=== PATIENT | female | born 1980 | race Asian ===

== ENCOUNTER 2019-07-01 18:41 | Emergency (ER) | payer OTHER ==
[2019-07-01] MEDS ORDERED: EPINEPHRINE INJ/PF 1 MG/1 ML AMPULE IM ONE (19:09)
[2019-07-01] MEDS ORDERED: METHYLPREDNISOLONE INJ 125 MG/2 ML SDV IV ONE (19:09)
[2019-07-01] MEDS ORDERED: FAMOTIDINE INJ/PF 20 MG/2 ML SDV IV ONE (19:09)
--- NOTE | 2019-07-01 19:12 | ER Document Report ---
ED Medical Screen (RME) - General Chief Complaint: Allergic Reaction Stated Complaint: POSSIBLE ALLERGIC REACTION Time Seen by Provider: 07/01/19 19:02 Mode of Arrival: Ambulatory Information source: Patient Notes: Patient presents with lip swelling and right periorbital swelling that started around 5 PM. Patient went to an urgent care was given 50 mg of Benadryl orally just prior to arrival here. Patient denies any difficulty breathing or swallowing. I have greeted and performed a rapid initial assessment of this patient. A comprehensive ED assessment and evaluation of the patient, analysis of test results and completion of the medical decision making process will be conducted by additional ED providers. Physical Exam - Vital signs Vitals: Temp Pulse Resp BP Pulse Ox 99.0 F 78 24 H 143/80 H 98 07/01/19 18:48 07/01/19 18:48 07/01/19 18:48 07/01/19 18:48 07/01/19 18:48 - General General appearance: Alert Notes: Right periorbital swelling, swelling to the right upper lip and left lower lip area. No posterior pharynx swelling or uvula edema. Course - Vital Signs Vital signs: Temp Pulse Resp BP Pulse Ox 99.0 F 78 24 H 143/80 H 98 07/01/19 18:48 07/01/19 18:48 07/01/19 18:48 07/01/19 18:48 07/01/19 18:48
--- NOTE | 2019-07-01 20:52 | ER Document Report ---
ED Allergic Reaction - General Chief Complaint: Allergic Reaction Stated Complaint: POSSIBLE ALLERGIC REACTION Time Seen by Provider: 07/01/19 19:02 Mode of Arrival: Ambulatory Notes: Patient is a 68-year-old female that comes to the emergency department for chief complaint of 6 right-sided lip swelling and periorbital swelling. She states this started about 5 PM although should she had irritated eyes throughout the day. She states she went to urgent care and was given 50 mg of Benadryl, she states after arriving here she started feeling improved, she states that she did have the sensation of tightness and difficulty swallowing in her throat with shortness of breath but this also completely resolved with getting epinephrine, famotidine, and Solu-Medrol in the ED. she still has some swelling to the right sided lip and eye but denies any other symptoms at this time. She did have a rash around her neck reportedly but this also has resolved. She states that she has had allergic reactions frequently in the past, she takes daily Claritin, she had allergic testing but did not get all of the results yet. She does not have an EpiPen. TRAVEL OUTSIDE OF THE [place] IN LAST 30 DAYS: No - Related Data Allergies/Adverse Reactions: dust Allergy (Uncoded 07/01/19 19:13) seafood Allergy (Uncoded 07/01/19 19:13) Past Medical History - General Information source: Patient - Social History Smoking Status: Never Smoker Frequency of alcohol use: None Drug Abuse: None Lives with: Family Family History: Reviewed & Not Pertinent Patient has suicidal ideation: No Patient has homicidal ideation: No Surgical Hx: Negative - Immunizations Immunizations up to date: Yes Hx Diphtheria, Pertussis, Tetanus Vaccination: Yes Review of Systems - Review of Systems Constitutional: No symptoms reported EENT: See HPI Cardiovascular: No symptoms reported Respiratory: See HPI Gastrointestinal: No symptoms reported Genitourinary: No symptoms reported Female Genitourinary: No symptoms reported Musculoskeletal: No symptoms reported Skin: See HPI Hematologic/Lymphatic: No symptoms reported Neurological/Psychological: No symptoms reported Physical Exam - Vital signs Vitals: Temp Pulse Resp BP Pulse Ox 99.0 F 78 24 H 143/80 H 98 07/01/19 18:48 07/01/19 18:48 07/01/19 18:48 07/01/19 18:48 07/01/19 18:48 - Notes Notes: GENERAL: Alert, interacts well. HEAD: Normocephalic, atraumatic. EYES: Pupils equal, round, and reactive to light. Extraocular movements intact. ENT: Oral mucosa moist, tongue midline. There is swelling that is very obvious enlarged to the right upper lip and also around the right periorbital area including mainly the upper eyelid. Patient can still open her eyes. Uvula normal, tongue normal, airway patent. Nares patent, no nasal septal hematoma, TM's intact. NECK: Full range of motion. Supple. Trachea midline. LUNGS: Clear to auscultation bilaterally, no wheezes, rales, or rhonchi. No respiratory distress. HEART: Regular rate and rhythm. No murmur ABDOMEN: Soft, non-tender. Non-distended. EXTREMITIES: Moves all 4 extremities spontaneously. No edema, normal radial and dorsalis pedis pulses bilaterally. No cyanosis. BACK: no cervical, thoracic, lumbar midline tenderness. No saddle anesthesia, normal distal neurovascular exam. Moves all extremities in full range of motion. NEUROLOGICAL: Alert and oriented x3. Normal speech. Cranial nerves II through XII grossly intact. PSYCH: Normal affect, normal mood. SKIN: Warm, dry, normal turgor. No rashes or lesions noted. Course - Re-evaluation Re-evalutation: On my initial evaluation patient has a lot of swelling to the right upper lip area and the right periorbital area mainly of the upper eyelid but her o ropharyngeal exam is normal, her skin exam is normal, her lungs are clear, she is in no distress. She states the tightness in her throat and the rash on her neck have both resolved. She denies any other symptoms other than the facial swelling at this time. She has been given epinephrine, Cymetra, Pepcid in addition to the 50 mg of Benadryl that she took, she will be monitored. Patient retracted and is now significantly improved, she will be monitored still. Patient has been monitored for 3 hours now. Swelling of the right upper lip and the right eyelid have almost completely resolved, no additional symptoms have appeared or returned. Patient is requesting to leave. I discussed treatment, strict return precautions, primary care follow-up in detail. Patient states appreciation and agreement, she is going home with her friend. Stable at time of discharge. - Vital Signs Vital signs: Temp Pulse Resp BP Pulse Ox 98.7 F 79 15 124/83 100 07/01/19 19:48 07/01/19 23:16 07/01/19 23:16 07/01/19 23:16 07/01/19 23:16 Discharge - Discharge Clinical Impression: Facial swelling Allergic reaction Qualifiers: Encounter type: initial encounter Qualified Code(s): T78.40XA - Allergy, unspecified, initial encounter Condition: Stable Disposition: HOME, SELF-CARE Additional Instructions: Your evaluation is consistent with a severe allergic reaction. Continue prednisone at home, take the prescribed Juliette at least for 1 week, I also recommend a daily antiallergy as well. Follow-up with your allergy testing results. Follow-up with primary care. In the event of return or severe symptoms such as difficulty swallowing or breathing, returned swelling of the face, etc., take the epinephrine pen and r eturn immediately to the emergency department. Prescriptions: Fexofenadine HCl [Juliette Allergy] 180 mg PO DAILY #30 tablet Prednisone [Deltasone 10 mg Tablet] 10 mg PO ASDIR PRN #21 tablet PRN Reason: Epinephrine [Epipen 2-Bryn] 0.3 mg IM ASDIR PRN #1 packet PRN Reason: Forms: Return to Work
[2019-07-01 23:18] VITALS: BP 124/83
== END 2019-07-01 23:16 | disposition home or self-care (01) ==
LOC: ER 18:41
DX: T78.04XA Anaphylactic reaction due to fruits and vegetables, initial encounter (principal); R22.0 Localized swelling, mass and lump, head; X58.XXXA Exposure to other specified factors, initial encounter; Z91.013 Allergy to seafood
CPT/HCPCS: J0171; J2930; S0028